=== PATIENT | male | born 1950 | race American Indian/Alaskan Native ===

== ENCOUNTER 2021-01-11 10:17 | Emergency (ER) | payer MEDICARE ==
[2021-01-11 11:03] VITALS: BP 105/68
--- NOTE | 2021-01-11 11:05 | Event Note ---
ED Screening Note ED Screening Note: Patient sent in by his doctor's office due to hyperglycemia and hypotension His blood pressure was 80 systolics in his clinic Blood pressure is stable at this time Patient states that he has tingling in his bilateral feet and saw another clinic and was advised that he has neuropathy but otherwise has no complaints This initial assessment/diagnostic orders/clinical plan/treatment(s) is/are subject to change based on patients health status, clinical progression and re- assessment by fellow clinical providers in the ED. Further treatment and workup at subsequent clinical providers discretion. Patient/guardian urged not to elope from the ED as their condition may be serious if not clinically assessed and managed. Initial orders include: Labs, urine
[2021-01-11 11:40] LABS: Basophils % (Auto) 0.3 % (0.0-1.8); Eosinophils # (Auto) 0.1 K/mm3 (0.0-0.4); Eosinophils % (Auto) 2.1 % (0.0-4.3); Hematocrit 35.8 % (35.5-45.6); Hemoglobin 11.9 gm/dl (11.8-15.2); Lymphocytes # (Auto) 2.1 K/mm3 (1.2-5.4); Lymphocytes % (Auto) 29.7 % (13.4-35.0); Mean Corpuscular HGB Conc 33 % (32-34); Mean Corpuscular Volume 82 fl (84-94); Monocytes # (Auto) 0.6 K/mm3 (0.0-0.8); Platelet Count 220 K/mm3 (140-440); Red Blood Count 4.35 M/mm3 (3.65-5.03); Red Cell Distribution Width 13.6 % (13.2-15.2)
[2021-01-11 12:56] LABS: Alanine Aminotransferase 8 units/L (7-56); Albumin 4.2 g/dL (3.9-5); BUN/Creatinine Ratio 19; Blood Urea Nitrogen 17 mg/dL (9-20); Calcium 9.5 mg/dL (8.4-10.2); Hemolysis Index 3
[2021-01-11 14:05] LABS: Bilirubin,Urine NEG (Negative); Blood,Urine NEG (Negative); Color,Urine Yellow (Yellow); Mucus,Urine FEW /HPF; Protein,Urine <15 mg/dL mg/dL (Negative); RBC,Urine < 1.0 /HPF (0.0-6.0); Urobilinogen,Urine < 2.0 mg/dL (<2.0); WBC,Urine < 1.0 /HPF (0.0-6.0)
--- NOTE | 2021-01-11 14:07 | Emergency Department Report ---
ED General Adult HPI - General Chief complaint: Hyperglycemia Stated complaint: HIGH SUGAR TEST DR REFERRED Time Seen by Provider: 01/11/21 11:03 Source: patient Mode of arrival: Ambulatory Limitations: No Limitations - History of Present Illness Initial comments: Chief complaint: "My sugar has never been right. My blood pressure is always low." HPI: This is a 70-year-old male history of diabetes mellitus who presents with low blood pressure and hyperglycemia. He had appointment with his physician for evaluation of 2 weeks of abdominal pain. Abdominal pain is lower nondescript. Improved with baking soda. He denies fever vomiting diarrhea. Last colonoscopy occur over 5 years ago. His physician referred him to the emergency department for evaluation of hypotension and hypoglycemia. He denies any pain at this time. He states that his blood sugar has not been controlled for the last several years. 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 He is currently symptom-free with exception of several months of bilateral leg tingling numbness. -: week(s) (2 weeks of abdominal pain) Location: abdomen Consistency: now resolved Improves with: other (Baking soda) Associated Symptoms: other (Hypotension, hyperglycemia, bilateral feet numbness) - Related Data Allergies Allergy/AdvReac Type Severity Reaction Status Date / Time No Known Allergies Allergy Unverified 01/11/21 10:47 ED Review of Systems ROS: Stated complaint: HIGH SUGAR TEST DR REFERRED Other details as noted in HPI Comment: All other systems reviewed and negative Constitutional: denies: chills, fever, malaise Respiratory: denies: cough, shortness of breath Cardiovascular: denies: chest pain, palpitations Gastrointestinal: abdominal pain. denies: nausea, vomiting Neurological: paresthesias ED Past Medical Hx - Past Medical History Previous Medical History?: Yes Hx Diabetes: Yes - Social History Smoking Status: Never Smoker Substance Use Type: None ED Physical Exam - General Limitations: No Limitations General appearance: alert, in no apparent distress, other (Appears well, normal brisk gait) - Head Head exam: Present: atraumatic, normocephalic - Eye Eye exam: Present: normal appearance - ENT ENT exam: Present: mucous membranes moist - Neck Neck exam: Present: normal inspection - Respiratory Respiratory exam: Present: normal lung sounds bilaterally. Absent: respiratory distress, wheezes, rales, rhonchi - Cardiovascular Cardiovascular Exam: Present: regular rate, normal rhythm, normal heart sounds. Absent: systolic murmur, diastolic murmur, rubs, gallop - GI/Abdominal GI/Abdominal exam: Present: soft, normal bowel sounds. Absent: distended, tenderness, guarding, rebound - Rectal Rectal exam: Present: deferred - Extremities Exam Extremities exam: Present: normal inspection - Back Exam Back exam: Present: normal inspection - Neurological Exam Neurological exam: Present: alert, oriented X3 - Psychiatric Psychiatric exam: Present: normal affect, normal mood - Skin Skin exam: Present: warm, dry, intact, normal color. Absent: rash ED Course Vital Signs 01/11/21 10:46 Temperature 97.8 F Pulse Rate 74 Respiratory 16 Rate Blood Pressure 105/68 O2 Sat by Pulse 99 Oximetry ED Medical Decision Making - Lab Data Result diagrams: 01/11/21 11:26 01/11/21 11:26 Laboratory Results - last 24 hr 01/11/21 01/11/21 01/11/21 10:45 11:26 11:26 WBC 7.0 RBC 4.35 Hgb 11.9 Hct 35.8 MCV 82 L MCH 27 L MCHC 33 RDW 13.6 Plt Count 220 Lymph % (Auto) 29.7 [place] % (Auto) 8.0 H Eos % (Auto) 2.1 Baso % (Auto) 0.3 Lymph # (Auto) 2.1 [place] # (Auto) 0.6 Eos # (Auto) 0.1 Baso # (Auto) 0.0 Seg Neutrophils % 59.9 Seg Neutrophils # 4.2 VBG pH Sodium 139 Potassium 4.7 Chloride 103.0 Carbon Dioxide 31 H Anion Gap 10 BUN 17 Creatinine 0.9 Estimated GFR > 60 BUN/Creatinine Ratio 19 Glucose 351 H POC Glucose 338 H Calcium 9.5 Total Bilirubin 0.30 AST 10 ALT 8 Alkaline Phosphatase 79 Total Protein 7.0 Albumin 4.2 Albumin/Globulin Ratio 1.5 01/11/21 11:26 WBC RBC Hgb Hct MCV MCH MCHC RDW Plt Count Lymph % (Auto) [place] % (Auto) Eos % (Auto) Baso % (Auto) Lymph # (Auto) [place] # (Auto) Eos # (Auto) Baso # (Auto) Seg Neutrophils % Seg Neutrophils # VBG pH 7.289 L Sodium Potassium Chloride Carbon Dioxide Anion Gap BUN Creatinine Estimated GFR BUN/Creatinine Ratio Glucose POC Glucose Calcium Total Bilirubin AST ALT Alkaline Phosphatase Total Protein Albumin Albumin/Globulin Ratio - Medical Decision Making 1. Abdominal pain 2 weeks improved with baking soda: Irritable bowel syndrome, gastroparesis are considerations. Strongly recommended routine colonoscopy. No tenderness or leukocytosis to suggest peritonitis. No current pain. 2. Hyperglycemia due to diabetes mellitus: Patient admits to not compliant with diabetic diet. Referred to primary care physician. Recommended contacting his healthcare insurance company for preferred sales support associate on insurance plan. 3. Diabetic neuropathy: Recommended primary care referral. Critical care attestation.: If time is entered above; I have spent that time in minutes in the direct care of this critically ill patient, excluding procedure time. ED Disposition Clinical Impression: Abdominal pain, Hyperglycemia due to diabetes mellitus, Diabetic neuropathy Disposition: 01 HOME / SELF CARE / HOMELESS Is pt being admited?: No Does the pt Need Aspirin: No Condition: Stable Instructions: Diabetes Mellitus Type 2 in Adults (ED), Abdominal Pain, Adult Referrals: PAT VO MD [Staff Physician] - 3-5 Days
== END 2021-01-11 14:19 | disposition home or self-care (01) ==
LOC: ED 10:17
DX: E11.65 Type 2 diabetes mellitus with hyperglycemia (principal); E11.40 Type 2 diabetes mellitus with diabetic neuropathy, unspecified; R10.30 Lower abdominal pain, unspecified
CPT/HCPCS: 36415; 80053; 81001; 82805; 82962; 85025; 99283

== ENCOUNTER 2021-07-04 07:04 | Outpatient (CLI) | payer MEDICARE ==
[2021-07-04 07:51] LABS: BUN/Creatinine Ratio 18; Blood Urea Nitrogen 20 mg/dL (9-20); Calcium 9.4 mg/dL (8.4-10.2); Hemolysis Index 34
--- NOTE | 2021-07-04 10:19 | Cat Scan Report ---
CT abdomen w con INDICATION / CLINICAL INFORMATION: R19.00 INTRA-ABDOMINAL PELVIC SWELLING/MASS/LUMP. TECHNIQUE: Axial CT images were obtained through the abdomen after IV contrast. All CT scans at this location are performed using CT dose reduction for ALARA by means of automated exposure control. COMPARISON: None available. FINDINGS: LOWER CHEST: No significant abnormality LIVER: No significant abnormality GALLBLADDER/BILIARY TREE: Cholecystectomy. PANCREAS: No significant abnormality SPLEEN: No significant abnormality ADRENALS: No significant abnormality KIDNEYS / URETER: Small renal cysts. Kidneys enhance symmetrically. No hydronephrosis. STOMACH / SMALL BOWEL: Small hiatal hernia is present. Small bowel is normal in caliber. No evidence of inflammation. COLON: There is mild wall thickening of the proximal ascending colon. This could be related to perist alsis/incomplete distention. No acute abnormality. Normal appendix is seen. LYMPH NODES: No significant adenopathy. VASCULATURE: No significant abnormality. OTHER: No free air, free fluid, or focal fluid collection is identified. There is atrophy of the psoa s musculature. SKELETAL SYSTEM: Degenerative changes of the spine. No acute osseous findings. IMPRESSION: 1. No evidence of acute abnormality of the abdomen. 2. Mild wall thickening of the proximal ascending colon, may be related to peristalsis/underdistentio n. Colonic lesion cannot be excluded. Recommend GI consultation and consideration for colonoscopy. 3. Other incidental findings above. Signer Name: Cipriano Mcghee MD Signed: 07/04/2021 10:15 AM Workstation Name: [id number]
== END 2021-07-04 07:05 | disposition home or self-care (01) ==
LOC: LAB 07:04
PROVIDERS: ATTEND Internal Medicine
DX: E11.65 Type 2 diabetes mellitus with hyperglycemia (principal); R19.00 Intra-abdominal and pelvic swelling, mass and lump, unspecified site
CPT/HCPCS: 36415; 74160; 80048; 83036; Q9967

== ENCOUNTER 2021-10-15 07:09 | Outpatient (CLI) | payer MEDICARE ==
--- NOTE | 2021-10-15 10:20 | Nuclear Medicine Report ---
Nuclear medicine gastric emptying study, solid phase Indication: Bloating, diabetes Findings: No priors. 1 mCi of technetium 99m sulfur colloid were administered orally oatmeal. Radiotr acer counts were obtained over the stomach and plotted against time. The curve generated was compare d to that of normal subjects. Half-life for gastric emptying measures 50 minutes, normal less than 120 minutes. There is no scintig raphic evidence for reflux disease. Conclusion: No scintigraphic evidence of delayed gastric emptying; the patient's gastric emptying cur ve is within normal limits.. Signer Name: Lonnie Flores Jr, MD Signed: 10/15/2021 10:16 AM Workstation Name: [id number]
== END 2021-10-15 07:10 | disposition home or self-care (01) ==
LOC: NM 07:09
PROVIDERS: ATTEND Internal Medicine Gastroenterology
DX: R14.0 Abdominal distension (gaseous) (principal); E11.9 Type 2 diabetes mellitus without complications
CPT/HCPCS: 78264; A9541